=== PATIENT | female | born 1990 ===

== ENCOUNTER → 2020-12-15 14:37 | Outpatient (BNVA) | payer SELFPAY | PROVIDERS: PCP Pediatrics Adolescent Medicine; Visit Provider Registered Nurse Neonatal Intensive Care | DX: M79.672 Pain in left foot (principal) | CPT/HCPCS: 73610; 73630 ==

== ENCOUNTER 2024-05-12 13:09 | Emergency (ER) | payer MEDICAID, SELFPAY ==
[2024-05-12 13:13] VITALS: BP 160/125; PULSE 109; RESP 22; TEMP 37.2; O2SAT 95; BMI 37.8
--- NOTE | 2024-05-12 13:15 | ECG_ITS ---
[facility] Date: 2024-05-12 Pat Name: Jeanine Zhu Department: Room: Gender: Female Digital Media Planner: : 1990 Requested By: Aakash Carrillo Order Number: [id number] Reading MD: Measurements Intervals [place] Rate: 112 P: 28 MT: 128 QRS: 62 QRSD: 71 T: 55 QT: 281 QTc: 385 Interpretive Statements SINUS TACHYCARDIA ABNORMAL RHYTHM ECG No previous ECG available for comparison [email or web address]
--- NOTE | 2024-05-12 13:38 | W.ED.SOB ---
HPI - SOB/Dyspnea General: Chief Complaint: Shortness of Breath/Dyspnea Stated Complaint: 18 wks , chest pain , sob Time Seen by Provider: 05/12/24 13:21 History of Present Illness: HPI Narrative: He presents to the ER with complaints of sickness shortness of breath. Patient said she was tested on Monday at her OB office for routine blood work and they swabbed her for influenza and she came back positive for influenza A. They said she is out of the window for treatment with Tamiflu. Last 24 hours patient just became more short of breath which make made her become anxious which developed into a vicious cycle. Patient eventually proceeded to come to here to the ER to be evaluated. Related Data Home Medications ?Medication ?Instructions ?Recorded ?Confirmed acetaminophen-pamabrom 500 mg-25 1 tab PO Q6H PRN Cramps 03/19/19 05/12/24 mg tablet (Midol) ibuprofen 200 mg tablet 600 mg PO DAILY PRN Pain 03/19/19 05/12/24 aspirin 81 mg tablet,delayed 81 mg PO DAILY 05/12/24 05/12/24 release famotidine 40 mg tablet 40 mg PO DAILY 05/12/24 05/12/24 ondansetron 4 mg disintegrating 4 mg PO Q6H PRN Nausea 05/12/24 05/12/24 tablet Previous Rx's ?Medication ?Instructions ?Recorded albuterol sulfate 90 mcg/actuation 2 inh inhalation QID PRN shortness 05/12/24 aerosol inhaler (Ventolin HFA) of breath or wheezing #8.5 grams nitrofurantoin 100 mg PO Q12H 7 days #14 caps 05/12/24 monohydrate/macrocrystals 100 mg capsule (Macrobid) Allergies Allergy/AdvReac Type Severity Reaction Status Date / Time No Known Allergies Allergy Verified 05/12/24 13:18 Review of Systems General: Reports: 10 or more systems reviewed and unremarkable except in HPI and below PFSH ED PFSH: Medical History Major depressive disorder, recurrent, moderate Social History Smoking and tobacco/nicotine status: current every day tobacco/nicotine user cigarettes Packs smoked per day: 1 Years cigarettes smoked: 10 Quit status (tobacco/nicotine): not considering quitting Second hand smoke exposure: Yes Physical Exam Const: COMMON NORMALS: no acute distress, average body habitus, patient oriented x3, no limitations, healthy appearing, alert and well nourished (Appears anxious) HENMT: COMMON NORMALS: normocephalic, atraumatic, hearing grossly normal bilaterally, external ears normal, Normal external nose present, moist oral mucous membranes and oropharynx normal HEAD & SCALP: normocephalic and atraumatic NOSE: Normal external nose present EXTERNAL EAR: Yes external ears normal Neck/C-Spine: COMMON NORMALS: no JVD Chest: COMMONS NORMALS: normal inspection of the chest and normal palpation of entire chest wall Resp: COMMON NORMALS: normal respiratory effort, No retractions, No use of accessory muscles and clear to auscultation bilaterally AUSCULTATION: clear to auscultation bilaterally Cardio: COMMON NORMALS: no JVD, regular rate, regular rhythm, S1 normal heart sound present, S2 normal heart sound present, No gallops present (Cardio), No clicks present (Cardio), No murmurs present (Cardio) and No rub (Cardio) RATE: regular rate RHYTHM: regular rhythm HEART SOUNDS: S1 normal heart sound present and S2 normal heart sound present GI: COMMON NORMALS: Normal to inspection, nondistended, normoactive bowel sounds present, Soft to palpation, non-tender, No hepatosplenomegaly present and no masses PALPATION: Yes Soft to palpation and Yes No hepatosplenomegaly present Neuro: COMMON NORMALS: patient oriented x3 SENSORIUM/ORIENTATION: Yes alert Course Vital Signs: Vital signs: Vital Signs Temperature 99.0 F 05/12/24 13:13 Pulse Rate 108 H 05/12/24 14:20 Respiratory Rate 22 H 05/12/24 14:20 Blood Pressure 122/61 05/12/24 14:20 Pulse Oximetry 93 05/12/24 14:20 Oxygen Delivery Me thod Room Air 05/12/24 14:20 MDM - SOB/Dyspnea Medical Decision Making Patient is given a DuoNeb treatment and states she started feeling much better patient be discharged home with a inhaler. Medical Records I reviewed the patient's medical records. Lab Data I reviewed the patient's lab results. Labs/Radiology: Laboratory Results Urine Color Dark yellow (Yellow) A 05/12/24 15:44 Urine Appearance Cloudy (CLEAR) A 05/12/24 15:44 Urine pH 6.5 (5-7) 05/12/24 15:44 Ur Specific [place] 1.010 (1.005-1.030) 05/12/24 15:44 Urine Protein Neg (Negative) 05/12/24 15:44 Urine Glucose (UA) Norm (Normal) 05/12/24 15:44 Urine Ketones Negative (Negative) 05/12/24 15:44 Urine Blood 2+ (Negative) H 05/12/24 15:44 Urine Nitrate Negative (Negative) 05/12/24 15:44 Urine Bilirubin Neg (Negative) 05/12/24 15:44 Urine Urobilinogen 1 mg/dL (Negative) H 05/12/24 15:44 Ur Leukocyte Esterase 2+ (Negative) H 05/12/24 15:44 Urine RBC 3-5 /hpf (0-2) 05/12/24 15:44 Urine WBC 11-20 /hpf (0-5) H 05/12/24 15:44 Ur Squamous Epith Cells 0-4 /hpf (0-5) H 05/12/24 15:44 Amorphous Sediment Not Reportable 05/12/24 15:44 Urine Bacteria Trace /hpf (NONE) 05/12/24 15:44 No radiology studies performed this visit Discharge Plan Discharge Patient Disposition: Home Clinical Impression: Influenza A Condition: Stable Prescriptions: New albuterol sulfate [Ventolin HFA] 90 mcg/actuation HFA aerosol inhaler 2 inh inhalation QID PRN (Reason: shortness of breath or wheezing) Qty: 8.5 0RF nitrofurantoin monohyd/m-cryst [Macrobid] 100 mg capsule 100 mg PO Q12H 7 Days Qty: 14 0RF Rx Instructions: must administer with a meal/food No Action Midol 500-25 mg tablet 1 tab PO Q6H PRN (Reason: Cramps) ibuprofen 200 mg tablet 600 mg PO DAILY PRN (Reason: Pain) famotidine 40 mg tablet 40 mg PO DAILY aspirin 81 mg tablet,delayed release (DR/EC) 81 mg PO DAILY ondansetron [Zofran ODT] 4 mg Tablet,Disintegrating 4 mg PO Q6H PRN (Reason: Nausea) Discharge Orders: Discharge ED (Routine); Ordered 05/12/24 Ordered By: Aakash Carrillo Referrals: Marcelino Castellanos Jr, MD [Primary Care Provider] - Patient Instructions: Influenza (DC) Activity Restrictions/Additional Instructions: Thank you for choosing [facility] for your healthcare needs today. Please realize that you were seen in the emergency department and that we are providing you with an emergency medical screening exam and this may not be a complete and all exclusive of all testing and/or medical workup we may need to determine your element or severity of your illness. It is very important that you follow-up as instructed with your primary care provider or specialist for the additional evaluation and to discuss your medical treatment plan. You may return to the emergency department should you have concerns or if your condition changes or worsens in any way. Print Language: Venezuelan Coding Level of Care Code ED Entry Level Assistant Manager for Guillermina Aponte
[2024-05-12 13:42] VITALS: PULSE 102; RESP 18; O2SAT 94
[2024-05-12] MEDS: ipratropium-albuterol 3 mL Neb INHALATION (13:42)
[2024-05-12 14:20] VITALS: BP 122/61; PULSE 108; RESP 22; O2SAT 93
[2024-05-12 15:50] LABS: Glucose Urine UA Norm (Normal); Protein Urine Neg (Negative); Urine Appearance Cloudy (CLEAR); Urine Color Dark Yellow (Yellow); pH Urine 6.5 (5-7)
[2024-05-12 15:51] LABS: Bilirubin Urine Neg (Negative); Blood Urine 2+ (Negative); Ketones Urine Negative (Negative); Leukocyte Esterase Urine 2+ (Negative); Nitrate Urine Negative (Negative); Urobilinogen Urine 1 mg/dL (Negative)
[2024-05-12 15:58] LABS: Bacteria Urine TRACE /hpf; Squamous Epithelial Cell Urine 0-4 /hpf (0-5)
[2024-05-12 17:13] LABS: Add Urine Culture? Yes
== END 2024-05-12 16:06 | disposition home or self-care (01) ==
PROVIDERS: Emergency Provider Emergency Medicine; PCP Pediatrics Adolescent Medicine
DX: J10.1 Influenza due to other identified influenza virus with other respiratory manifestations (principal); Z79.82 Long term (current) use of aspirin; F17.210 Nicotine dependence, cigarettes, uncomplicated; O26.892 Other specified pregnancy related conditions, second trimester; Z3A.18 18 weeks gestation of pregnancy
CPT/HCPCS: 81001; 87086; 93005; 94640; 99283; J9999